=== PATIENT | male | born 1990 | race Two or more races ===

== ENCOUNTER 2018-11-19 00:54 | Emergency (ER) | payer OTHER ==
[~2018-11-19] VITALS: Ht 172.7 cm; Wt 61.4 kg
[2018-11-19 02:25] VITALS: BP 129/87
== END 2018-11-19 05:33 | disposition home or self-care (01) ==
LOC: EMS 00:54
DX: F32.9 Major depressive disorder, single episode, unspecified (principal); F12.90 Cannabis use, unspecified, uncomplicated